=== PATIENT | male | born 1975 | race Two or more races ===

== ENCOUNTER 2016-07-01 11:07 | Emergency (ER) | payer SELFPAY ==
[~2016-07-01] VITALS: Ht 177.8 cm; Wt 79.4 kg
[2016-07-01 11:28] VITALS: BP 186/128
[2016-07-01 11:46] LABS: APPEARANCE,URINE CLEAR; KETONES,URINE NEGATIVE (NEGATIVE); LEUKOCYTE ESTERASE ,URINE 1+ (NEGATIVE); NITRITE,URINE NEGATIVE (NEGATIVE); PH,URINE 6 (4.5-8.0); PROTEIN,URINE 3+ (NEGATIVE); UROBILINOGEN,URINE 1 MG/DL (0.0-1.0)
--- NOTE | 2016-07-01 12:00 | Emergency Room Report ---
History of Present Illness General Chief Complaint: Skin Rash/Abscess Source: Patient Present Illness HPI The patient is a 40-year-old male presenting for a rash of the abdomen which he noticed 5 days prior. The patient states that he has an allergy to metal and thinks this may be contact dermatitis due to a belt he wore. The patient states he is experiencing a 5/10 burning pain to the area and is worse with touch. The patient also noticed that the area has become swollen. The patient has tried hydrocortisone cream which has not helped. The patient does admit to a subjective fever which began last night. The patient denies any other symptoms including dysuria, hematuria, penile discharge, flank pain, night sweats, chills Allergies: Coded Allergies: No Known Allergies (Unverified , 07/01/16) Patient History Past Medical History: see triage record Pertinent Family History: none Reviewed Nursing Documentation: PMH: Agreed, PSxH: Agreed Nursing Documentation-PMH Past Medical History: No Stated History Review of Systems All Other Systems: negative except mentioned in HPI Physical Exam Vital Signs Date Time Temp Pulse Resp B/P Pulse Ox O2 Delivery O2 Flow Rate FiO2 07/01/16 11:20 98.4 106 18 186/128 98 Room Air Sp02 EP Interpretation: reviewed, normal General Appearance: no apparent distress, alert, GCS 15, non-toxic Head: normocephalic, atraumatic Eyes: bilateral eye PERRL, bilateral eye normal inspection ENT: hearing grossly normal, normal pharynx, no angioedema, normal voice Gastrointestinal: normal bowel sounds, non tender, soft, no mass, non-distended , no guarding, no rebound Genitourinary: no CVA tenderness, penis normal, scrotum normal Musculoskeletal: back normal, gait/station normal, normal range of motion Neurologic: alert, oriented x3, responsive, motor strength/tone normal, sensory intact, speech normal Psychiatric: judgement/insight normal, memory normal, mood/affect normal, no suicidal/homicidal ideation Skin: normal turgor, other - There is a 4x3cm suprapubic abscess. Indurated. Central peak. No opening. No DC. TTP. Hot to touch. Medical Decision Making PA Attestation Dr. Gómez is my supervising physician. Patient management was discussed with my supervising physician Diagnostic Impression: Primary Impression: Abscess Additional Impressions: Urinary tract infection Hematuria, microscopic ER Course The patient is a 40-year-old male presenting for a rash of the abdomen which he noticed 5 days prior. DDx:Contact dermatitis, cellulitis, abscess, herpes PE: The patient is initially hypertensive and is given 0.1mg clonidine prior to DC. Afebrile. NAD There is a 4x3cm suprapubic abscess. Indurated. Central peak. No opening. No DC. TTP. Hot to touch. Normal BS. Abd is soft, non tender. No CVA tenderness. Labs: There is few bacteria with 2-4 white blood cells and 4+ occult blood. No nitrites. The patient will be treated for an abscess and UTI with Bactrim. ER precautions are given and pt will FU with PMD. Pt informed of urine results. Laboratory Tests Test 07/01/16 11:35 Urine Color Yellow Urine Appearance Clear Urine pH 6 (4.5-8.0) Urine Specific [place] 1.020 (1.005-1.035) Urine Protein 3+ (NEGATIVE) H Urine Glucose (UA) Negative (NEGATIVE) Urine Ketones Negative (NEGATIVE) Urine Occult Blood 4+ (NEGATIVE) H Urine Nitrite Negative (NEGATIVE) Urine Bilirubin Negative (NEGATIVE) Urine Urobilinogen 1 MG/DL (0.0-1.0) H Urine Leukocyte Esterase 1+ (NEGATIVE) H Urine RBC 2-4 /HPF (0 - 0) H Urine WBC 2-4 /HPF (0 - 0) Urine Squamous Epithelial Cells Occasional /LPF Urine Bacteria Few /HPF (NONE) Urine Mucus Moderate /LPF (NONE/OCC) H Lab Results Impression There is few bacteria with 2-4 white blood cells and 4+ occult blood Last Vital Signs Date Time Temp Pulse Resp B/P Pulse Ox O2 Delivery O2 Flow Rate FiO2 07/01/16 11:28 18 186/128 98 Room Air 07/01/16 11:20 98.4 106 Status: improved Disposition: HOME, SELF-CARE Condition: Improved Scripts Trimethoprim/Sulfamethoxazole 160/800* (BACTRIM DS TABLET*) 1 Each Tablet 1 TAB ORAL TWICE A DAY, #20 TAB Prov: ONOFRE ACUÑA 07/01/16 Referrals: NOT CHOSEN IPA/,REFERRING (PCP) ONOFRE ACUÑA Jul 01, 2016 12:00
[2016-07-01 12:06] LABS: BACTERIA,URINE FEW /HPF; MUCUS,URINE MODERATE /LPF (NONE/OCC); SQUAMOUS EPITHELIAL CELL,UR OCCASIONAL /LPF (NONE/OCC)
[2016-07-01] MEDS ORDERED: BACTRIM DS TAB1 EAC1 ORAL (12:28)
[2016-07-01 13:03] VITALS: BP 163/127
== END 2016-07-01 13:08 | disposition home or self-care (01) ==
LOC: EMR 11:40
DX: L02.211 Cutaneous abscess of abdominal wall (principal); N39.0 Urinary tract infection, site not specified; R31.29 Other microscopic hematuria
CPT/HCPCS: 81003; 99283